=== PATIENT | female | born 1955 | race Caucasian/White ===

== ENCOUNTER 2016-03-31 08:37 | Emergency (ER) | payer MEDICARE, MEDICAID ==
[~2016-03-31] VITALS: Ht 147.3 cm; Wt 80.0 kg
[2016-03-31 08:37] VITALS: BP 109/61; PULSE 79; RESP 16; TEMP 97.6; O2SAT 97
[~2016-03-31 08:37] MED LIST: CIPR-9 PO; MEDR4PAK PO; METR-1 PO
[2016-03-31] MEDS ORDERED: SODIUM CHLOR 0.9% 1000 ML INJ 1,000 ML IV SCH (08:46)
--- NOTE | 2016-03-31 08:51 | PD ---
HPI Chief Complaint: Abdominal Pain Time Seen by Provider: 08:42 Travel History International Travel<30 days: No Contact w/Intl Traveler<30days: No Traveled to known affect area: No History of Present Illness HPI The patient is a 60-year-old female who presents to the emergency department via EMS for nausea, vomiting, and abdominal cramping. The patient notes a 2 day history of abdominal cramping with mild nausea, experienced vomiting earlier today. The patient is blind, was unable to describe the emesis. The patient denies any diarrhea, states her last bowel movement was 2 days ago. The patient states the pain is sharp, crampy, intermittent, and periumbilical. The patient denies any dysuria, cough, chest pain, or shortness of breath. The patient also complains of a dry mouth and sore throat. The patient's current primary physician is a home health physician secondary to being blind. The patient is unable to see any light or shadows from either eye. PFSH Past Medical History Arthritis: Yes (OSTOEARTHRITIS) Asthma: Yes Autoimmune Disease: Yes (PITUITARY ADENOMA) Cardiovascular Problems: Yes (CHOLESTEROL) Diminished Hearing: Yes (HEARING DELAY BOTH EARS) Diverticulitis: Yes Fibromyalgia: Yes GERD: Yes Genitourinary: Yes (FREQUENT SINCE CHILDHOOD) Musculoskeletal: Yes (TMJ) Neurologic: Yes (HYDROCEPHALUS) Respiratory: Yes (Asthma) Immunizations Current: Yes Seizures: Yes (HX OF, MOST RECENT 1987) Ulcer: Yes (HX OF) Menopausal: Yes : 1 Para: 1 Past Surgical History Section: Yes Cholecystectomy: Yes Eye Surgery: Yes (RIGHT EYE CATARACT REMOVAL X2) Neurologic Surgery: Yes (RIGHT ATRIAL SHUNT WITH AT 17 REVISIONS) Social History Alcohol Use: No Tobacco Use: No Substance Use: No Allergies-Medications (Allergen,Severity, Reaction): Coded Allergies: Common Ragweed (Verified Allergy, Severe, Wheezing, 03/31/16) Contrast Media (Verified Allergy, Severe, UNKNOWN, 03/31/16) Droperidol (Verified Allergy, Severe, UNKNOWN, 03/31/16) Gluten (Verified Allergy, Severe, MARE, 03/31/16) Loratadine (Verified Allergy, Severe, UNKNOWN, 03/31/16) Molds and Smuts (Verified Allergy, Severe, Anaphylaxis, 03/31/16) Mosquito (Verified Allergy, Severe, UNKNOWN, 03/31/16) Phenobarbital (Verified Allergy, Severe, UNKNOWN, 03/31/16) Seafood (Verified Allergy, Severe, Anaphylaxis, 03/31/16) Soma (Verified Allergy, Severe, UNKNOWN, 03/31/16) Sulfa (Verified Allergy, Severe, UNKNOWN, 03/31/16) Dilantin (Verified Allergy, Unknown, 03/31/16) Uncoded Allergies: ALLERGY INJECTIONS (Allergy, Severe, UNKNOWN, 08/21/15) AZELASTINE (Allergy, Severe, UNKNOWN, 08/21/15) CLEANING PRODUCTS (Allergy, Severe, UNKNOWN, 08/21/15) CLOROX (Allergy, Severe, UNKNOWN, 08/21/15) FLIES (Allergy, Severe, UNKNOWN, 08/21/15) GRASS POLLEN (Allergy, Severe, Wheezing, 08/21/15) OPTIVAR (Allergy, Severe, UNKNOWN, 08/21/15) ROACHES (Allergy, Severe, Anaphylaxis, 08/21/15) RODENTS (Allergy, Severe, Anaphylaxis, 08/21/15) TREE POLLEN (Allergy, Severe, Wheezing, 08/21/15) "Cillans" (Allergy, Unknown, 08/21/15) Reported Meds & Prescriptions Reported Meds & Active Scripts Active No Active Prescriptions or Reported Medications Review of Systems Except as stated in HPI: all other systems reviewed are Neg General / Constitutional: No: Fever HENT: Positive: Sore Throat Cardiovascular: No: Chest Pain or Discomfort Respiratory: No: Cough, Shortness of Breath Gastrointestinal: Positive: Nausea, Vomiting, Abdominal Pain, No: Diarrhea Genitourinary: No: Dysuria Musculoskeletal: No: Weakness Physical Exam Narrative GENERAL: Awake, alert, pleasant 60-year-old female who appears her stated age and is in no acute respiratory distress. SKIN: Warm and dry. HEAD: Atraumatic. Normocephalic. EYES: Blind from both eyes. ENT: No nasal bleeding or discharge. Dry mucous membranes. Posterior oropharynx reveals mild erythema but no exudate.. NECK: Trachea midline. No JVD. CARDIOVASCULAR: Regular rate and rhythm. No murmur appreciated. RESPIRATORY: No accessory muscle use. Clear to auscultation. Breath sounds equal bilaterally. GASTROINTESTINAL: Abdomen soft, no rebound tenderness. Negative Ratliff's. Negative McBurney's. MUSCULOSKELETAL: No obvious deformities. No clubbing. No cyanosis. No edema. NEUROLOGICAL: Awake and alert. Blind. Moves all 4 extremities. Normal speech. PSYCHIATRIC: Appropriate mood and affect; insight and judgment normal. Data Data Last Documented VS Vital Signs Date Time Temp Pulse Resp B/P Pulse Ox O2 Delivery O2 Flow Rate FiO2 03/31/16 11:07 78 15 108/57 97 Room Air 03/31/16 08:37 97.6 Orders Complete Blood Count With Diff (03/31/16 08:46) Comprehensive Metabolic Panel (03/31/16 08:46) Lipase (03/31/16 08:46) Urinalysis - C+S If Indicated (03/31/16 08:46) Iv Access Insert/Monitor (03/31/16 08:46) Ecg Monitoring (03/31/16 08:46) Oximetry (03/31/16 08:46) Morphine Inj (Morphine Inj) (03/31/16 09:00) Ondansetron Inj (Zofran Inj) (03/31/16 09:00) Sodium Chlor 0.9% 1000 Ml Inj (Ns 1000 M (03/31/16 08:46) Sodium Chloride 0.9% Flush (Ns Flush) (03/31/16 09:00) Electrocardiogram (03/31/16 08:46) Famotidine Inj (Pepcid Inj) (03/31/16 09:00) Influenzae A/B Antigen (03/31/16 09:28) Potassium Chloride (Kcl) (03/31/16 10:00) Potassium Chloride Eff (K-Lyte Cl Eff) (03/31/16 10:45) Labs Laboratory Tests Test 03/31/16 08:50 White Blood Count 9.8 TH/MM3 Red Blood Count 4.62 MIL/MM3 Hemoglobin 14.9 GM/DL Hematocrit 44.1 % Mean Corpuscular Volume 95.5 FL Mean Corpuscular Hemoglobin 32.1 PG Mean Corpuscular Hemoglobin 33.6 % Concent Red Cell Distribution Width 13.5 % Platelet Count 354 TH/MM3 Mean Platelet Volume 7.7 FL Neutrophils (%) (Auto) 61.9 % Lymphocytes (%) (Auto) 26.9 % Monocytes (%) (Auto) 7.5 % Eosinophils (%) (Auto) 3.1 % Basophils (%) (Auto) 0.6 % Neutrophils # (Auto) 6.1 TH/MM3 Lymphocytes # (Auto) 2.6 TH/MM3 Monocytes # (Auto) 0.7 TH/MM3 Eosinophils # (Auto) 0.3 TH/MM3 Basophils # (Auto) 0.1 TH/MM3 CBC Comment DIFF FINAL Differential Comment Sodium Level 144 MEQ/L Potassium Level 3.0 MEQ/L Chloride Level 110 MEQ/L Carbon Dioxide Level 27.0 MEQ/L Anion Gap 7 MEQ/L Blood Urea Nitrogen 13 MG/DL Creatinine 0.73 MG/DL Estimat Glomerular Filtration 82 ML/MIN Rate Random Glucose 105 MG/DL Calcium Level 8.7 MG/DL Total Bilirubin 0.9 MG/DL Aspartate Amino Transf 15 U/L (AST/SGOT) Alanine Aminotransferase 23 U/L (ALT/SGPT) Alkaline Phosphatase 101 U/L Total Protein 7.4 GM/DL Albumin 3.3 GM/DL Lipase 78 U/L [facility] Medical Decision Making Medical Screen Exam Complete: Yes Emergency Medical Condition: Yes Interpretation(s) EKG reveals normal sinus rhythm with a rate of 67. Low QRS voltage in precordial leads. Laboratory Tests Test 03/31/16 08:50 White Blood Count 9.8 TH/MM3 Red Blood Count 4.62 MIL/MM3 Hemoglobin 14.9 GM/DL Hematocrit 44.1 % Mean Corpuscular Volume 95.5 FL Mean Corpuscular Hemoglobin 32.1 PG Mean Corpuscular Hemoglobin 33.6 % Concent Red Cell Distribution Width 13.5 % Platelet Count 354 TH/MM3 Mean Platelet Volume 7.7 FL Neutrophils (%) (Auto) 61.9 % Lymphocytes (%) (Auto) 26.9 % Monocytes (%) (Auto) 7.5 % Eosinophils (%) (Auto) 3.1 % Basophils (%) (Auto) 0.6 % Neutrophils # (Auto) 6.1 TH/MM3 Lymphocytes # (Auto) 2.6 TH/MM3 Monocytes # (Auto) 0.7 TH/MM3 Eosinophils # (Auto) 0.3 TH/MM3 Basophils # (Auto) 0.1 TH/MM3 CBC Comment DIFF FINAL Differential Comment Sodium Level 144 MEQ/L Potassium Level 3.0 MEQ/L Chloride Level 110 MEQ/L Carbon Dioxide Level 27.0 MEQ/L Anion Gap 7 MEQ/L Blood Urea Nitrogen 13 MG/DL Creatinine 0.73 MG/DL Estimat Glomerular Filtration 82 ML/MIN Rate Random Glucose 105 MG/DL Calcium Level 8.7 MG/DL Total Bilirubin 0.9 MG/DL Aspartate Amino Transf 15 U/L (AST/SGOT) Alanine Aminotransferase 23 U/L (ALT/SGPT) Alkaline Phosphatase 101 U/L Total Protein 7.4 GM/DL Albumin 3.3 GM/DL Lipase 78 U/L Differential Diagnosis Differential diagnosis includes gastritis, gastroenteritis, peptic ulcer disease , pancreatitis, atypical cholecystitis, biliary colic, influenza, viral syndrome. Narrative Course IV was established, labs are drawn and sent, and the patient was placed on cardiac telemetry monitoring and continuous pulse oximetry monitoring. The patient was administered morphine, Zofran, Pepcid, and IV fluids. Influenza screen was sent to lab. UA was sent to lab. The patient's potassium is low at 3.0, therefore, was replaced orally. The patient had no further vomiting, abdominal exam and labs are unremarkable, patient be discharged home with nausea medicine and Zantac. The patient is advised to follow-up with her primary physician and return if symptoms worsen or progress. Diagnosis Primary Impression: Gastritis Qualified Code: K29.00 - Acute gastritis, presence of bleeding unspecified, unspecified gastritis type Patient Instructions: General Instructions Additional Instructions: Medications as directed. Follow-up with your primary physician. Return if symptoms worsen or progress. Med/Other Pt SpecificInfo: Prescription(s) given Scripts Ondansetron Odt (Zofran Odt)4 Mg Tab4 Mg SL Q6HR PRN (Nausea/Vomiting) #7 TAB Ref 0 Prov:Deondre Ferrari MD 03/31/16 Ranitidine (Zantac 150 Maximum Strength)150 Mg [id number] Mg PO BID 14 Days Prov:Deondre Ferrari MD 03/31/16 Disposition: 01 DISCHARGE HOME Condition: Stable Deondre Ferrari MD Mar 31, 2016 08:51
[2016-03-31] MEDS ORDERED: ONDANSETRON HCL 4 MG/2 ML VIAL IVP ONE (09:00)
[2016-03-31] MEDS ORDERED: MORPHINE SULFATE 4 MG/ML INJ IV PUSH ONE (09:00)
[2016-03-31] MEDS ORDERED: FAMOTIDINE 20 MG/2 ML VIAL IV PUSH ONE (09:00)
[2016-03-31] MEDS ORDERED: SODIUM CHLORIDE 0.9% FLUSH 5 ML FLUSH IVF PRN (09:00)
[2016-03-31 09:06] LABS: AUTOMATED NEUTROPHIL # 6.1 TH/MM3 (1.8-7.7); BASOPHIL # 0.1 TH/MM3 (0-0.2); BASOPHIL % 0.6 % (0.0-2.0); EOSINOPHIL # 0.3 TH/MM3 (0-0.4); EOSINOPHIL % 3.1 % (0.0-4.0); HEMATOCRIT 44.1 % (35.0-46.0); HEMO FLAGS DIFF FINAL; LYMPH % 26.9 % (9.0-44.0); LYMPHOCYTE # 2.6 TH/MM3 (1.0-4.8); MEAN CELL VOLUME 95.5 FL (80.0-100.0); MEAN CORPUSCULAR HEMOGLOBIN 32.1 PG (27.0-34.0); MEAN CORPUSCULAR HGB CONC 33.6 % (32.0-36.0); MONO % 7.5 % (0.0-8.0); NEUT % 61.9 % (16.0-70.0); PLATELET COUNT 354 TH/MM3 (150-450); RED BLOOD COUNT 4.62 MIL/MM3 (4.00-5.30); RED CELL DISTRIBUTION WIDTH 13.5 % (11.6-17.2); WHITE BLOOD COUNT 9.8 TH/MM3 (4.0-11.0)
[2016-03-31 09:19] LABS: ANION GAP 7 MEQ/L (5-15); AST (GOT) 15 U/L (15-37); BLOOD UREA NITROGEN 13 MG/DL (7-18); CHLORIDE 110 MEQ/L (98-107); GLOMERULAR FILTRATION RATE 82 ML/MIN (>89); SODIUM (NA) 144 MEQ/L (136-145)
[2016-03-31 09:24] LABS: ALKALINE PHOSPHATASE 101 U/L (45-117); ALT (GPT) 23 U/L (10-53); TOTAL BILIRUBIN ADULT 0.9 MG/DL (0.2-1.0)
[2016-03-31] MEDS ORDERED: POTASSIUM CHLORIDE 20 MEQ CONTROLLED RELEASE TAB PO ONE (10:00)
[2016-03-31] MEDS ORDERED: POTASSIUM CHLORIDE 25 MEQ EFFERVESCENT TAB PO ONE (10:45)
[2016-03-31 11:07] VITALS: BP 108/57; PULSE 78; RESP 15; O2SAT 97
[2016-03-31] MEDS ORDERED: ZANTTAB PO (11:11)
[2016-03-31] MEDS ORDERED: ZOFR4TAB3 SL (11:11)
--- NOTE | 2016-03-31 16:18 | EKG ---
Date Performed: 03/31/2016 Time Performed: 09:12:08 PTAGE: 60 years EKG: Sinus rhythm LOW QRS VOLTAGE IN PRECORDIAL LEADS Compared to prior tracing no significant change BORDERLINE ECG PREVIOUS TRACING : 02/16/2016 12.33 DOCTOR: Ephraim Leigh Interpretating Date/Time 03/31/2016 16:17:40
== END 2016-03-31 12:44 | disposition home or self-care (01) ==
LOC: NEPE 08:37
DX: K29.70 Gastritis, unspecified, without bleeding (principal); M19.90 Unspecified osteoarthritis, unspecified site; M79.7 Fibromyalgia; G91.9 Hydrocephalus, unspecified; J45.909 Unspecified asthma, uncomplicated; H54.0 Blindness, both eyes; H91.93 Unspecified hearing loss, bilateral
CPT/HCPCS: 80053; 83690; 85025; 87804; 93005; 96361; 96374; 96375; 99284; J2405; J7030

== ENCOUNTER 2016-03-31 13:50 | Emergency (ER) | payer MEDICARE, MEDICAID ==
[~2016-03-31] VITALS: Ht 149.9 cm; Wt 59.0 kg
[~2016-03-31 13:50] MED LIST changes: +ZANTTAB PO; +ZOFR4TAB3 SL
[2016-03-31 13:55] VITALS: BP 109/94; PULSE 97; RESP 14; TEMP 97.7; O2SAT 79; O2SAT 97
== END 2016-03-31 17:58 | disposition left against medical advice (07) ==
LOC: NEPE 13:50
DX: G91.9 Hydrocephalus, unspecified (principal)
CPT/HCPCS: 99281